=== PATIENT | male | born 1995 | race Two or more races ===

== ENCOUNTER → 2017-07-05 11:34 | Outpatient (CLI) | payer OTHER ==
[~2017-07-05] VITALS: Ht 152.4 cm; Wt 77.1 kg
[~2017-07-05 11:34] MED LIST: MILLIPRED DP5 M1 PO; NO TOMA MEDICAMENTO; TRAMADOL HCL50 MG PO
== END | disposition home or self-care (01) ==
LOC: PPHC 11:34
DX: Z02.79 Encounter for issue of other medical certificate (principal)